=== PATIENT | female | born 1985 | race Caucasian/White ===

== ENCOUNTER 2019-08-01 13:06 | Emergency (ER) | payer BC, OTHER ==
[2019-08-01 13:15] VITALS: BP 103/55; PULSE 78; TEMP 99; BMI 22.8
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
== END 2019-08-01 14:08 | disposition home or self-care (01) ==
LOC: JERFT 13:06
DX: S16.1XXA Strain of muscle, fascia and tendon at neck level, initial encounter (principal); W20.8XXA Other cause of strike by thrown, projected or falling object, initial encounter; Y93.89 Activity, other specified; Y92.89 Other specified places as the place of occurrence of the external cause; Y99.0 Civilian activity done for income or pay; F41.9 Anxiety disorder, unspecified
CPT/HCPCS: 99283-25